=== PATIENT | female | born 1975 | race Caucasian/White ===

== ENCOUNTER 2017-01-27 19:24 | Emergency (ER) | payer SELFPAY ==
[2017-01-27] MEDS ORDERED: ONDANSETRON HCL INJ/PF 4 MG/2 ML SDV IV ONE (19:49)
[2017-01-27] MEDS ORDERED: NORMAL SALINE 1000 ML 1,000 ML IV ONE (19:49)
--- NOTE | 2017-01-27 19:51 | ER Document Report ---
ED Medical Screen (RME) - General Chief Complaint: Nausea/Vomiting Stated Complaint: VOMITING BLOOD Time Seen by Provider: 01/27/17 19:48 Notes: Patient states that she has severe abdominal pain is greatest in the right upper quadrant. She is also been vomiting blood. TRAVEL OUTSIDE OF THE [place] IN LAST 30 DAYS: No - Related Data Allergies/Adverse Reactions: hydrocodone bitartrate [From Vicodin] Adverse Reaction (Intermediate, Verified 12/02/16 13:15) GI upset naproxen sodium [From Aleve] Adverse Reaction (Intermediate, Verified 12/02/16 13:15) VOMITING ibuprofen [From Motrin] Adverse Reaction (Verified 12/02/16 13:15) bladder pain Past Medical History - Social History Frequency of alcohol use: Occasional Drug Abuse: None Pulmonary Medical History: Reports: Hx Bronchitis Renal/ Medical History: Denies: Hx Peritoneal Dialysis Past Surgical History: Reports: Hx Tubal Ligation - Immunizations Hx Diphtheria, Pertussis, Tetanus Vaccination: Yes Physical Exam - Vital signs Vitals: Temp Pulse Resp BP Pulse Ox 100 F 108 H 18 143/100 H 98 01/27/17 19:34 01/27/17 19:34 01/27/17 19:34 01/27/17 19:34 01/27/17 19:34 Course - Vital Signs Vital signs: Temp Pulse Resp BP Pulse Ox 100 F 108 H 18 143/100 H 98 01/27/17 19:34 01/27/17 19:34 01/27/17 19:34 01/27/17 19:34 01/27/17 19:34
[2017-01-27 20:38] LABS: ABSOLUTE LYMPHOCYTES (AUTO) 1.2 10^3/uL (0.5-4.7); ABSOLUTE MONOCYTES (AUTO) 0.5 10^3/uL (0.1-1.4); ABSOLUTE NEUT (AUTO) 3.4 10^3/uL (1.7-8.2); BASOPHILS % (AUTO) 0.5 % (0-2); EOSINOPHILS % (AUTO) 0.1 % (0-6); HEMATOCRIT 42.5 % (36.0-47.0); HEMOGLOBIN 14.5 g/dL (12.0-15.5); LYMPHOCYTES % (AUTO) 23.4 % (13-45); MEAN CORPUSCULAR VOLUME 88 fl (80-97); MONOCYTES % (AUTO) 10.1 % (3-13); RED BLOOD COUNT 4.82 10^6/uL (3.72-5.28); RED CELL DISTRIBUTION WIDTH 13.3 % (11.5-14.0); SEGMENTED NEUTROPHILS % (AUTO) 65.9 % (42-78); WHITE BLOOD COUNT 5.1 10^3/uL (4.0-10.5)
--- NOTE | 2017-01-27 20:54 | ER Document Report ---
ED GI/ - General Chief Complaint: Nausea/Vomiting Stated Complaint: VOMITING BLOOD Time Seen by Provider: 01/27/17 19:48 Notes: Patient is a 41-year-old female, past medical history chronic back pain and taking frequent NSAIDs and aspirin, presents after she vomited up blood 3 days ago. She is also having epigastric pain that is worse with acidic food. She does not know if she has ever had a gastric ulcer in the past. Patient denies diarrhea, constipation, blood or dark stools, urinary symptoms, chest pain, shortness of breath, back pain, right upper quadrant pain, change in bowel or bladder or saddle anesthesia. TRAVEL OUTSIDE OF THE [place] IN LAST 30 DAYS: No - Related Data Allergies/Adverse Reactions: hydrocodone bitartrate [From Vicodin] Adverse Reaction (Intermediate, Verified 12/02/16 13:15) GI upset naproxen sodium [From Aleve] Adverse Reaction (Intermediate, Verified 12/02/16 13:15) VOMITING ibuprofen [From Motrin] Adverse Reaction (Verified 12/02/16 13:15) bladder pain Past Medical History - General Information source: Patient - Social History Smoking Status: Never Smoker Frequency of alcohol use: Occasional Drug Abuse: None Family History: Reviewed & Not Pertinent Patient has suicidal ideation: No Patient has homicidal ideation: No Pulmonary Medical History: Reports: Hx Bronchitis Renal/ Medical History: Denies: Hx Peritoneal Dialysis Past Surgical History: Reports: Hx Tubal Ligation - Immunizations Hx Diphtheria, Pertussis, Tetanus Vaccination: Yes Review of Systems - Review of Systems Notes: REVIEW OF SYSTEMS: CONSTITUTIONAL: -fevers, -chills EENT: -eye pain, -difficulty swallowing, -nasal congestion CARDIOVASCULAR: -chest pain, -syncope. RESPIRATORY: -cough, -SOB GASTROINTESTINAL: +RUQ and epigastric abdominal pain, +nausea, +vomiting, - diarrhea, +hematemesis GENITOURINARY: -dysuria, -hematuria MUSCULOSKELETAL: -back pain, -neck pain SKIN: -rash or skin lesions. HEMATOLOGIC: -easy bruising or bleeding. LYMPHATIC: -swollen, enlarged glands. NEUROLOGICAL: -altered mental status or loss of consciousness, -headache, - neurologic symptoms PSYCHIATRIC: -anxiety, -depression. ALL OTHER SYSTEMS REVIEWED AND NEGATIVE. Physical Exam - Vital signs Vitals: Temp Pulse Resp BP Pulse Ox 100 F 108 H 18 143/100 H 98 01/27/17 19:34 01/27/17 19:34 01/27/17 19:34 01/27/17 19:34 01/27/17 19:34 - Notes Notes: PHYSICAL EXAMINATION: GENERAL: Well-appearing, well-nourished and in no acute distress. HEAD: Atraumatic, normocephalic. EYES: Pupils equal round and reactive to light, extraocular movements intact, sclera anicteric, conjunctiva are normal. ENT: nares patent, oropharynx clear without exudates. Moist mucous membranes. NECK: Normal range of motion, supple without lymphadenopathy LUNGS: Breath sounds clear to auscultation bilaterally and equal. No wheezes rales or rhonchi. HEART: Regular rate and rhythm without murmurs ABDOMEN: Soft, nontender, normoactive bowel sounds. No guarding, no rebound. No masses appreciated. RECTAL: Brown stool. No hemorrhoids. EXTREMITIES: Normal range of motion, no pitting or edema. No cyanosis. NEUROLOGICAL: Cranial nerves grossly intact. Normal speech, normal gait. Normal sensory and motor exams. PSYCH: Anxious mood. SKIN: Warm, Dry, normal turgor, no rashes or lesions noted. Course - Re-evaluation Re-evalutation: Patient appears well. She had an episode of hematemesis 3 days ago. Stool is negative for blood. Her hemoglobin is 14 and she is hemodynamically stable. Repeat Hgb 2 hours later after 1 L normal saline is 13.5, but she has not had any active bleeding at this time. Initial tachycardia in triage resolved upon my evaluation. RUQ US ordered from Triage shows gallbladder sludge and a positive sonographic Rodriguez sign, but clinically patient does not have any signs of cholecystitis, labs are not consistent with cholecystitis and she does not have any right upper quadrant abdominal tenderness on my exam. Do not suspect cholecystitis at this time. Suspect gastric ulcer or gastritis due to the frequent NSAID use from her chronic bulging disc. Will begin Prilosec twice daily to help with suspected ulcer and instructed her to stop NSAID use and begin Lidoderm patches, since she said this has worked in the past. She is sfae for outpatient follow-up with the GI doctor for further evaluation and treatment. - Vital Signs Vital signs: Temp Pulse Resp BP Pulse Ox 100 F 108 H 18 143/100 H 98 01/27/17 19:34 01/27/17 19:34 01/27/17 19:34 01/27/17 19:34 01/27/17 19:34 - Laboratory Result Diagrams: 01/27/17 21:30 01/27/17 22:00 Laboratory results interpreted by me: 01/27/17 22:00 Sodium 136.7 L Total Bilirubin 0.1 L Total Protein 5.8 L - Diagnostic Test Radiology reviewed: Image reviewed, Reports reviewed Radiology results interpreted by me: FRANCESCA US: Positive sonographic Rodriguez sign and gallbladder sludge -nonshadowing stones identified. Consider surgical consultation if there is high clinical suspicion. Discharge - Discharge Clinical Impression: History of hematemesis, Epigastric pain Condition: Stable Disposition: HOME, SELF-CARE Additional Instructions: Gastritis You have an inflammation of the stomach called gastritis. This commonly causes upper abdominal pain, nausea, and vomiting. In severe cases, bleeding of the stomach lining can occur. Gastritis can be caused by bacteria or viruses , alcohol, or stomach-irritating drugs. Begin with sips of clear liquids. Take increasing amounts of fluid over the first 24 hours. Then start small amounts of bland foods (such as dry toast , applesauce, mashed potato). Gradually resume your usual diet. You should take antacids every two hours until the pain has subsided. Acid -suppressing drugs may be prescribed as well. Avoid aspirin, caffeine, tobacco , and alcohol. If the abdominal pain worsens, or there is evidence of major bleeding in the stomach (such as black, tarry stool, bloody or black vomit, or lightheadedness), you should return immediately. Call the doctor if you aren't improved in 24 to 36 hours. Prescriptions: Lidocaine [Lidoderm 5% (700 mg) Transdermal Patch] 1 patch TP DAILY #10 adh..patch Omeprazole Magnesium [Prilosec Otc] 20 mg PO Q12H #14 tablet.dr Forms: Elevated Blood Pressure Referrals: KALINA CRUZ MD [ACTIVE STAFF] - Follow up as needed
[2017-01-27] MEDS ORDERED: PANTOPRAZOLE SODIUM 40 MG VIAL IV ONE (21:05)
--- NOTE | 2017-01-27 21:33 | RADIOLOGY REPORT (SQ) ---
EXAM DESCRIPTION: U/S ABDOMEN LIMITED W/O DOP COMPLETED DATE/TIME: 01/27/2017 9:15 pm REASON FOR STUDY: ruq pain COMPARISON: None. TECHNIQUE: Dynamic and static grayscale images acquired of the right upper quadrant and recorded on PACS. Additional selected color Doppler and spectral images recorded. LIMITATIONS: Study limited due to acoustical interference from fat or from air in the bowel. FINDINGS: PANCREAS: Visualized pancreas and duct normal. Parts of pancreas poorly seen secondary to acoustical interference from fat or from air in the bowel. LIVER: No masses. Echotexture normal. LIVER VASCULATURE: Normal directional flow of the main portal vein and hepatic veins. GALLBLADDER: Sludge -nonshadowing stones identified.. Normal wall thickness. No pericholecystic fluid . ULTRASOUND-DETECTED RODRIGUEZ'S SIGN: Positive. INTRAHEPATIC DUCTS AND COMMON DUCT: CBD and intrahepatic ducts normal caliber. No filling defects. INFERIOR VENA CAVA: Normal flow. AORTA: No aneurysm. RIGHT KIDNEY: Normal size. Normal echogenicity. No solid or suspicious masses. No hydronephrosis. No calcifications. PERITONEAL CAVITY AND RIGHT PLEURAL SPACE: No ascites or effusions. OTHER: No other significant finding. IMPRESSION: Positive sonographic Rodriguez sign and gallbladder sludge -nonshadowing stones identified. Consider surgical consultation if there is high clinical suspicion. TECHNICAL DOCUMENTATION: JOB ID: [id number] [place]-72 2010 [employer]- All Rights Reserved
[2017-01-27 21:41] LABS: ABSOLUTE LYMPHOCYTES (AUTO) 1.1 10^3/uL (0.5-4.7); ABSOLUTE MONOCYTES (AUTO) 0.5 10^3/uL (0.1-1.4); ABSOLUTE NEUT (AUTO) 2.5 10^3/uL (1.7-8.2); BASOPHILS % (AUTO) 0.3 % (0-2); EOSINOPHILS % (AUTO) 0.1 % (0-6); HEMATOCRIT 39.9 % (36.0-47.0); HEMOGLOBIN 13.5 g/dL (12.0-15.5); HGB HCT DIFFERENCE 0.6; LYMPHOCYTES % (AUTO) 26.6 % (13-45); MEAN CORPUSCULAR HEMOGLOBIN 30.1 pg (27.0-33.4); MEAN CORPUSCULAR HGB CONC 33.9 g/dL (32.0-36.0); MEAN CORPUSCULAR VOLUME 89 fl (80-97); MONOCYTES % (AUTO) 11.8 % (3-13); RED BLOOD COUNT 4.48 10^6/uL (3.72-5.28); RED CELL DISTRIBUTION WIDTH 13.1 % (11.5-14.0); SEGMENTED NEUTROPHILS % (AUTO) 61.2 % (42-78); WHITE BLOOD COUNT 4.2 10^3/uL (4.0-10.5)
[2017-01-27 22:32] LABS: ALANINE AMINOTRANSFERASE 33 U/L (9-52); ALBUMIN 3.6 g/dL (3.5-5.0); ALKALINE PHOSPHATASE 49 U/L (38-126); ANION GAP 10 (5-19); ASPARTATE AMINO TRANSFERASE 21 U/L (14-36); BILIRUBIN,DIRECT 0.1 mg/dL (0.0-0.4); BILIRUBIN,TOTAL 0.1 mg/dL (0.2-1.3); BLOOD UREA NITROGEN 9 mg/dL (7-20); CALCIUM 8.4 mg/dL (8.4-10.2); CARBON DIOXIDE 23 mmol/L (22-30); CHLORIDE 104 mmol/L (98-107); CREATININE RESULT 0.86 mg/dL (0.52-1.25); GLUCOSE 78 mg/dL (75-110); LIPASE 128.9 U/L (23-300); POTASSIUM 3.9 mmol/L (3.6-5.0); SODIUM 136.7 mmol/L (137-145); TOTAL PROTEIN 5.8 g/dL (6.3-8.2)
[2017-01-27] MEDS ORDERED: LIDOCAINE 5% (700 MG) TRANSDERMAL ADH..PATCH TP ONE (22:36)
[2017-01-27] MEDS ORDERED: ACETAMINOPHEN 325 MG TABLET PO ONE (22:36)
[2017-01-27 23:11] VITALS: BP 131/73
== END 2017-01-27 23:10 | disposition home or self-care (01) ==
LOC: ER 19:24
DX: K92.0 Hematemesis (principal); K80.20 Calculus of gallbladder without cholecystitis without obstruction; R10.13 Epigastric pain; M54.9 Dorsalgia, unspecified; G89.29 Other chronic pain; Z79.1 Long term (current) use of non-steroidal anti-inflammatories (NSAID); Z79.82 Long term (current) use of aspirin
CPT/HCPCS: 99284; 96361; 96374; 96375; 36415; 87040; 83690; 84703; 85025; 82272; 80053; 76705; S0164; J2405; J7030

== ENCOUNTER 2018-04-03 09:11 | Emergency (ER) | payer SELFPAY ==
[2018-04-03] MEDS ORDERED: DIPHENHYDRAMINE HCL 50 MG CAPSULE PO ONE (10:41)
[2018-04-03] MEDS ORDERED: PREDNISONE 20 MG TABLET PO ONE (10:42)
[2018-04-03] MEDS ORDERED: FAMOTIDINE 20 MG TABLET PO ONE (10:42)
--- NOTE | 2018-04-03 10:43 | ER Document Report ---
ED Medical Screen (RME) - General Chief Complaint: Allergic Reaction Stated Complaint: POSSIBLE ALLERGIC REACTION Time Seen by Provider: 04/03/18 10:37 Mode of Arrival: Ambulatory Information source: Patient, [facility] Records Notes: 42-year-old female presents with complaint of allergic reaction. She states she awoke this morning with facial swelling. She says this happens to her frequently. I have greeted and performed a rapid initial assessment of this patient. A comprehensive ED assessment and evaluation of the patient, analysis of test results and completion of medical decision making process we will be contacted by additional ED providers. PHYSICAL EXAMINATION: Vital signs reviewed-hypertensive GENERAL: Well-appearing, well-nourished and in no acute distress. EENT: Mild puffiness to the patient's eyelids. Airway patent. No tongue swelling. LUNGS: No respiratory distress. No stridor, no wheezing, Musculoskeletal: Normal range of motion NEUROLOGICAL: Normal speech, normal gait. PSYCH: Normal mood, normal affect. SKIN: Warm, Dry, normal turgor, no rashes or lesions noted. TRAVEL OUTSIDE OF THE [place] IN LAST 30 DAYS: No - HPI Onset: Yesterday Onset/Duration: Sudden Quality of pain: No pain Severity: None Pain Level: Denies Associated Symptoms: None Exacerbated by: Denies Relieved by: Denies Similar symptoms previously: Yes Recently seen / treated by doctor: Yes - Related Data Smoking: Non-smoker Frequency of alcohol use: None Drug Abuse: None Allergies/Adverse Reactions: hydrocodone bitartrate [From Vicodin] Adverse Reaction (Intermediate, Verified 04/03/18 09:17) GI upset naproxen sodium [From Aleve] Adverse Reaction (Intermediate, Verified 04/03/18 09:17) VOMITING ibuprofen [From Motrin] Adverse Reaction (Verified 04/03/18 09:17) bladder pain seafood Allergy (Intermediate, Uncoded 04/03/18 10:32) Blisters mold Allergy (Uncoded 04/03/18 10:32) Past Medical History - Social History Frequency of alcohol use: None Drug Abuse: None Pulmonary Medical History: Reports: Hx Bronchitis Renal/ Medical History: Denies: Hx Peritoneal Dialysis Past Surgical History: Reports: Hx Tubal Ligation - Immunizations Hx Diphtheria, Pertussis, Tetanus Vaccination: Yes Physical Exam - Vital signs Vitals: Temp Pulse Resp BP Pulse Ox 98.7 F 56 L 14 150/96 H 99 04/03/18 09:17 04/03/18 09:17 04/03/18 09:17 04/03/18 09:17 04/03/18 09:17 Course - Vital Signs Vital signs: Temp Pulse Resp BP Pulse Ox 98.7 F 56 L 14 150/96 H 99 04/03/18 09:17 04/03/18 09:17 04/03/18 09:17 04/03/18 09:17 04/03/18 09:17
--- NOTE | 2018-04-03 12:02 | ER Document Report ---
ED General - General Chief Complaint: Allergic Reaction Stated Complaint: POSSIBLE ALLERGIC REACTION Time Seen by Provider: 04/03/18 10:37 Mode of Arrival: Ambulatory Information source: Patient, [facility] Records Notes: 42-year-old female presents with complaint of facial swelling, difficulty swallowing which was present upon awakening this morning. Patient states that she often has allergic reactions but cannot tell me what she is allergic to. Patient takes Benadryl on a regular basis and her last dose was yesterday. She denies any new exposures to food, detergents, lotion. 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 She denies any recent illness. TRAVEL OUTSIDE OF THE [place] IN LAST 30 DAYS: No - HPI Onset: This morning Onset/Duration: Sudden Quality of pain: No pain Severity: None Associated symptoms: Allergy/hay fever. denies: Chest pain, Fever, Headache, Nausea, Vomiting Exacerbated by: Denies Relieved by: Denies Similar symptoms previously: Yes Recently seen / treated by doctor: Yes - Related Data Allergies/Adverse Reactions: hydrocodone bitartrate [From Vicodin] Adverse Reaction (Intermediate, Verified 04/03/18 09:17) GI upset naproxen sodium [From Aleve] Adverse Reaction (Intermediate, Verified 04/03/18 09:17) VOMITING ibuprofen [From Motrin] Adverse Reaction (Verified 04/03/18 09:17) bladder pain seafood Allergy (Intermediate, Uncoded 04/03/18 10:32) Blisters mold Allergy (Uncoded 04/03/18 10:32) Past Medical History - General Information source: Patient, [facility] Records - Social History Smoking Status: Former Smoker Frequency of alcohol use: None Drug Abuse: None Family History: Reviewed & Not Pertinent Patient has suicidal ideation: No Patient has homicidal ideation: No Pulmonary Medical History: Reports: Hx Bronchitis Renal/ Medical History: Denies: Hx Peritoneal Dialysis Past Surgical History: Reports: Hx Tubal Ligation - Immunizations Hx Diphtheria, Pertussis, Tetanus Vaccination: Yes Review of Systems - Review of Systems Notes: REVIEW OF SYSTEMS: CONSTITUTIONAL : Denies fever, chills, or sweats. Denies recent illness. Denies weight loss, recent hospitalizations. EENT: Denies visual changes, eye pain. Denies sore throat, oral lesions, CARDIOVASCULAR: Denies chest pain. Denies palpitations. Denies lower extremity edema. RESPIRATORY: Denies cough. Denies shortness of breath, wheezing. GASTROINTESTINAL: Denies abdominal pain or distention. Denies nausea, vomiting, or diarrhea. Denies blood in vomitus, stools, or per rectum. Denies black, tarry stools. Denies constipation. GENITOURINARY: Denies difficulty urinating, painful urination, frequency, blood in urine, or vaginal discharge. MUSCULOSKELETAL: Denies back or neck pain or stiffness. Denies joint pain or swelling. SKIN: Denies rash, lesions or sores. HEMATOLOGIC : Denies easy bruising or bleeding. LYMPHATIC: Denies swollen glands. NEUROLOGICAL: Denies confusion or altered mental status. Denies loss of consciousness. Denies dizziness or lightheadedness. Denies headache. Denies weakness or paralysis. Denies problems difficulty with ambulation, slurred speech. Denies sensory loss, numbness, or tingling. Denies seizures. PSYCHIATRIC: Denies anxiety or stress. Denies depression, suicidal ideation, or homicidal ideation. Denies visual or auditory hallucinations. Physical Exam - Vital signs Vitals: Temp Pulse Resp BP Pulse Ox 98.7 F 56 L 14 150/96 H 99 04/03/18 09:17 04/03/18 09:17 04/03/18 09:17 04/03/18 09:17 04/03/18 09:17 - Notes Notes: PHYSICAL EXAMINATION: GENERAL: Well-appearing, well-nourished and in no acute distress. HEAD: Atraumatic, normocephalic. EYES: Pupils equal round and reactive to light, extraocular movements intact, conjunctiva are normal. Mild puffiness to the eyelids bilaterally. ENT: Nares patent, oropharynx clear without exudates. Moist mucous membranes. No lip swelling, tongue swelling, airway patent, no stridor. NECK: Normal range of motion, supple without lymphadenopathy LUNGS: Breath sounds clear to auscultation bilaterally and equal. No wheezes rales or rhonchi. HEART: Regular rate and rhythm without murmurs ABDOMEN: Soft, nontender, nondistended abdomen. No guarding, no rebound. No masses appreciated. Female : deferred Musculoskeletal: Normal range of motion, no pitting or edema. No cyanosis. NEUROLOGICAL: Cranial nerves grossly intact. Normal speech, normal gait. Normal sensory, motor exams PSYCH: Normal mood, normal affect. SKIN: Warm, Dry, normal turgor, no rashes or lesions noted. Course - Re-evaluation Re-evalutation: Temp Pulse Resp BP Pulse Ox 98.5 F 58 L 16 146/88 H 100 04/03/18 12:10 04/03/18 12:10 04/03/18 12:10 04/03/18 12:10 04/03/18 12:10 04/03/18 13:21 42-year-old female presents with complaint of an allergic reaction. On exam she has no urticaria, wheezing, stridor, lips or tongue swelling. She does have some puffiness to her eyes. Patient did receive Benadryl, prednisone and Pepcid. On reevaluation patient states that she is feeling better. She is requesting discharge home. Patient was evaluated and treated as appropriate for the patient's presenting symptoms and complaint, with consideration of any critical or life threatening conditions that may be associated with their obtain ed history and exam as noted above. All results were discussed with patient. Patient provided the opportunity to ask questions, and express concerns. Patient was educated on treatments based on their presumed diagnosis as noted above. At this time we will discharge the patient with return precautions and follow-up recommendations. Verbal discharge instructions given a the bedside. Medication warnings reviewed. Patient is in agreement with this plan and has verbalized understanding of return precautions. After careful consideration I feel that that patient can be safely discharged from the emergency department, they were advised to followup with a primary care physician in 2-3 days. Dictation on this chart was performed using voice recognition software and may result in unintended grammatical, spelling, syntax or errors. - Vital Signs Vital signs: Temp Pulse Resp BP Pulse Ox 98.5 F 58 L 16 146/88 H 100 04/03/18 12:10 04/03/18 12:10 04/03/18 12:10 04/03/18 12:10 04/03/18 12:10 Discharge - Discharge Clinical Impression: Allergic reaction Qualifiers: Encounter type: initial encounter Qualified Code(s): T78.40XA - Allergy, unspecified, initial encounter Swollen eyelid Qualifiers: Laterality: unspecified laterality Qualified Code(s): H02.849 - Edema of unspecified eye, unspecified eyelid Condition: Good Disposition: HOME, SELF-CARE Instructions: Acute Allergic Reaction ([facility]) Prescriptions: Famotidine [Pepcid 40 mg Tablet] 40 mg PO DAILY #5 tablet Prednisone [Deltasone 20 mg Tablet] 1 tab PO DAILY 5 Days #5 tablet Forms: Elevated Blood Pressure
[2018-04-03 12:14] VITALS: BP 146/88
== END 2018-04-03 12:10 | disposition home or self-care (01) ==
LOC: ER 09:11
DX: T78.40XA Allergy, unspecified, initial encounter (principal); H02.849 Edema of unspecified eye, unspecified eyelid; X58.XXXA Exposure to other specified factors, initial encounter; Z98.51 Tubal ligation status; Z88.6 Allergy status to analgesic agent
CPT/HCPCS: 99283; J7512

== ENCOUNTER → 2019-10-29 | Outpatient (CLI) | payer BC | LOC: WI 13:19 | PROVIDERS: ATTEND Midwife | DX: Z12.31 Encounter for screening mammogram for malignant neoplasm of breast (principal); Z80.3 Family history of malignant neoplasm of breast ==